=== PATIENT | female | born 1955 | race Caucasian/White ===

== ENCOUNTER → 2021-03-17 10:05 | Outpatient (CLI) | payer MEDICARE, BC, SELFPAY ==
[2021-03-17 11:53] LABS: Add Manual Diff / Slide Review NO; Basophils Absolute Auto 0 /uL (0-100); Eosinophils Absolute Auto 200 /uL (0-450); Eosinophils Percent Auto 3.8 % (2-4); Hematocrit 37.9 % (36-46); Hemoglobin 13.1 g/dL (12.0-16.0); Lymphocytes Absolute Auto 1300 /uL (1100-4500); Lymphocytes Percent Auto 27.9 % (25-40); Mean Corpuscular HGB Conc 34.5 % (30-36); Mean Corpuscular Hemoglobin 33.1 PG (26-34); Mean Corpuscular Volume 95.9 fL (80-100); Monocytes Absolute Auto 400 /uL (0-900); Monocytes Percent Auto 9.3 % (3-14); Neutrophils Absolute Auto 2700 /uL (1500-7000); Platelet Count 264 X10^3/uL (150-400); Red Blood Cell Count 3.95 X10^6/uL (4.0-5.2); Red Cell Distribution Width 13.7 % (11.6-14.8); White Blood Cell Count 4.7 X10^3/uL (4.5-11.0)
[2021-03-17 12:12] LABS: Alanine Aminotransferase 40 IU/L (<35); Albumin Globulin Ratio 1.3 (1.0-2.8); Alkaline Phosphatase 51 U/L (38-126); Aspartate Aminotransferase 36 IU/L (14-36); BUN Creatinine Ratio 28.9 (6-22); Bilirubin Total 0.4 mg/dL (0.2-1.3); Blood Urea Nitrogen 11 mg/dL (7-17); Calcium 9.2 mg/dL (8.4-10.2); Carbon Dioxide 30 mmol/L (22-32); Chloride 99 mmol/L (98-107); Estimated Glomerular Filt Rate > 60.0 mL/min (>60); Globulin 3.2 g/dL (1.7-4.1); Glucose 156 mg/dL (80-110); HEMOLYSIS < 15 (0-50); Potassium 3.8 mmol/L (3.4-5.1); Sodium 136 mmol/L (137-145); Total Protein 7.2 g/dL (6.3-8.2)
[2021-03-18 16:08] LABS: Mercury None Detected ug/L (0.0-14.9)
== END ==
PROVIDERS: PCP Nurse Practitioner Family; Referring Provider Nurse Practitioner Family; Visit Provider Nurse Practitioner Family
DX: Z77.018 Contact with and (suspected) exposure to other hazardous metals (principal)
CPT/HCPCS: 36415; 80053; 83825; 85025

== ENCOUNTER → 2021-03-19 13:30 | Outpatient (CLI) | payer MEDICARE, BC, SELFPAY ==
[2021-03-31 13:31] LABS: Creatinine, Urine 0.55
[2021-03-31 13:32] LABS: Inorg Arsenic/ Creat Ratio <18
[2021-03-31 13:33] LABS: Mercury, Urine NONE DETECTED
== END ==
PROVIDERS: PCP Nurse Practitioner Family; Referring Provider Nurse Practitioner Family; Visit Provider Nurse Practitioner Family
DX: Z77.018 Contact with and (suspected) exposure to other hazardous metals (principal)
CPT/HCPCS: 82175; 82570; 83825

== ENCOUNTER → 2021-04-15 14:08 | Outpatient (CLI) | payer MEDICARE, BC, SELFPAY | PROVIDERS: PCP Nurse Practitioner Family; Referring Provider Nurse Practitioner Family; Visit Provider Nurse Practitioner Family | DX: E11.9 Type 2 diabetes mellitus without complications (principal) | CPT/HCPCS: 36415; 83036 ==

== ENCOUNTER → 2021-04-30 07:49 | Outpatient (CLI) | payer MEDICARE, BC, SELFPAY ==
--- NOTE | 2021-04-30 07:50 | DI.US.S_ITS ---
PROCEDURE: US ABDOMEN LIMITED INDICATIONS: FOLLOW UP PANCREATIC CYST TECHNIQUE: Real-time focused scanning was performed of the abdomen, with image documentation. COMPARISON: Previous report from abdominal ultrasound dated 02/21/2021. No films available for comparison.. FINDINGS: Liver is diffusely increased in echogenicity. No focal hepatic abnormalities identified. Normal hepatic size. No gallstones identified. Normal gallbladder wall. No pericholecystic fluid. Negative sonographic Dickerson sign. No biliary dilatation. Normal pancreas and no pancreatic cyst is seen. IMPRESSION: 1. Increased hepatic echogenicity noted possibly related to hepatic steatosis but other sources of hepatocellular disease cannot be excluded. Recommend clinical correlation. 2. No pancreatic cyst seen sonographically. Dictated by: Vicente Espinoza [facility] Interpreted: Parish Quach MD on 05/08/2021 at 13:16 Transcribed by: LEVI on 05/08/2021 at 13:18 Approved by: Jose Elias Quach M.D. on 05/10/2021 at 7:42
== END ==
PROVIDERS: PCP Nurse Practitioner Family; Referring Provider Nurse Practitioner Family; Visit Provider Nurse Practitioner Family
DX: Z78.0 Asymptomatic menopausal state (principal); K86.2 Cyst of pancreas; E11.9 Type 2 diabetes mellitus without complications; Z90.722 Acquired absence of ovaries, bilateral
CPT/HCPCS: 76705; 77080

== ENCOUNTER → 2021-06-10 11:50 | Outpatient (CLI) | payer OTHER, SELFPAY ==
--- NOTE | 2021-06-10 11:51 | DI.MRI.S_ITS ---
PROCEDURE: MR ABDOMEN WO/W CON INDICATIONS: pancreatic cyst eval TECHNIQUE: Coronal HASTE, axial 2D FLASH in- and [id number]; axial breath-hold T2 FSE with fat saturation from the hepatic dome to the iliac crests. Oblique coronal thin-slice and radial thick slab HASTE through the biliary system. Dynamic axial VIBE during administration of contrast. Post-contrast coronal VIBE or 2D FLASH with fat saturation from the hepatic dome to the iliac crests. Optional diffusion weighted imaging and ADC may be performed. COMPARISON: Outside Facility, RG, CT ABDOMEN/PELVIS WITHOUT CONTRAST, 02/21/2021, 16:32. Outside Facility, RG, CT ABDOMEN/PELVIS WITHOUT CONTRAST, 11/17/2020, 21:17. [facility], , US ABDOMEN LIMITED, 04/30/2021, 9:27. FINDINGS: Image quality: Excellent. Pancreas and biliary system: Within the body/tail of the pancreas, there is a somewhat irregular is cystic lesion, as on series 4, images 18 and 19 that measures 18 by 9 mm in greatest axial dimension, with a craniocaudal extent of 11 mm. This cyst does appear to be contiguous with the pancreatic duct. No significant abnormal enhancement can be seen within the cyst, although there does appear to be septation. No additional cystic lesions are seen. The pancreatic duct does not appear dilated. No pancreatic ductal developmental anomalies are seen. The pancreas demonstrates normal bulk, without atrophic regions. Solid organs: Liver is normal in size and enhancement. Gallbladder is unremarkable. Spleen is normal in size and enhancement. No adrenal nodules. Kidneys are normal in size and enhancement, without hydronephrosis. Nodes and vessels: No retroperitoneal or mesenteric adenopathy by size criteria. Aorta and inferior vena cava are normal in size. Bowel and peritoneum: Unenhanced bowel loops are normal in caliber throughout. No free fluid. Lung bases: No basal pleural effusions. Heart size is normal. Bones and soft tissues: No ventral hernias. Bone marrow is normal in overall signal. IMPRESSION: 18 mm the right cyst seen within the pancreatic body/tail, which demonstrates apparent connection with the main pancreatic duct. There is high suspicion for a side branch IPMN. By published criteria, follow-up pancreas protocol CT or MRI would be recommended in 1 year. Dictated by: Carmine Pedraza M.D. on 06/10/2021 at 12:54 Approved by: Carmine Pedraza M.D. on 06/10/2021 at 13:05
== END ==
PROVIDERS: PCP Nurse Practitioner Family; Referring Provider Nurse Practitioner Family; Visit Provider Nurse Practitioner Family
DX: K86.2 Cyst of pancreas (principal)
CPT/HCPCS: 74183